=== PATIENT | male | born 1970 | race Caucasian/White ===

== ENCOUNTER 2018-06-20 05:46 | Day surgery (SDC) | payer OTHER ==
[2018-06-19 09:17] VITALS: BMI 41.4
--- NOTE | 2018-06-19 21:20 | PREOPHP ---
DATE OF ADMISSION: 06/20/2018 HISTORY OF PRESENT ILLNESS: This 48-year-old gentleman is going to be admitted for diagnostic arthro scopy of right knee, examination under general anesthesia, partial medial and lateral meniscectomy, p ossible ACL repair or reconstruction and removal of the previous remnant of the graft and screw from previous surgery, application of Russo dressing. SOCIAL HISTORY: He used to smoke and stopped smoking. Nondrinker. FAMILY HISTORY: Negative. PAST SURGICAL HISTORY: Previous surgery in 2003 ACL reconstruction. ALLERGIES: NO HISTORY OF ALLERGY TO MEDICATION. MEDICATIONS: 1. Sulindac. 2. Baclofen. 3. Folic acid. 4. For postop, Bactrim-DS and ibuprofen is given. PHYSICAL EXAMINATION: VITAL SIGNS: Height 6 inches 4 feet, weighing 315 pounds. SKIN: Within normal limits. EENT: PERRLA. HEAD AND NECK: Normocephalic. Trachea midline. Bilateral symmetrical carotid pulses. No mass, no bruit, no lymphadenopathy. CARDIOVASCULAR: Normal sinus rhythm. S1, S2 normal. No murmur, no JVD, no peripheral edema. LUNGS: Clear. ABDOMEN: Protuberant. No organomegaly. No mass. Bowel sounds present. RECTAL: Not pertinent to this admission, not done. MUSCULOSKELETAL: Head and neck unremarkable. Upper extremities normal with normal neurovascular exa mination. Spine clear. Both lower extremities symmetrical and normal except for right knee, full ra nge of motion, was able to the knee 70 to 80 degrees. There is marked tenderness over the medi al or lateral tibiofemoral joint line. Positive Arpita test. There is mild tenderness over the pa tellofemoral joint line. RADIOLOGIC EVALUATION: MRI report indicates postoperative changes with meniscal debridement, partial meniscectomy bilaterally and ACL tear. There is moderate significant arthrosis of the anterior aspe ct of the knee joint. ACL repair forward with complete disruption of the graft ossified mass within the posterior aspect of the intercondylar notch may be associated with prior ACL repair of a nonunion fracture superimposed to posterior horn of lateral meniscus adjacent to the intercondylar notch comp artment chondromalacia. X-ray has indicated previous anterior cruciate reconstruction moderate compartment osteoarthrosis. 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 Treatment plan, alternatives, risks and benefits discussed. No guarantee is being made. If there is a grade III chondromalacia in tricompartment area, there is no reason to go ahead and do this; howev er, if this reasonable shape of the meniscus. Will try our best to repair this meniscus and sa ve them and maybe put another ACL in. If the condition is not met for ACL allograft, will remove the screws and bone grafting will be done and then another second surgery would be performed for ACL all ograft. A formal H and P is supposed to be done by PCP. Dictated By: BILLIE ALANIS/JOHNSON Conf#: [id number] DID#: [id number]
[2018-06-20] VITALS (13 sets, daily range): BP systolic 128–158; BP diastolic 65–89; PULSE 69–90; RESP 11–18; Ht 193 cm; Wt 154.2 kg
[~2018-06-20] VITALS: Ht 193 cm; Wt 154.2 kg
[~2018-06-20 05:46] MED LIST: HYDR-3980 PO
--- NOTE | 2018-06-20 07:08 | PREAC ---
Date/Time of Note Date/Time of Note DATE: 06/20/18 TIME: 07:06 Anesthesia Eval and Record Evaluation Time Pre-Procedure Interview DATE: 06/20/18 TIME: 07:06 Age 48 Sex male NPO: 8 hrs Preoperative diagnosis right knee meniscus tear and ACL rupture Planned procedure right knee operative arthroscopy, partial medial and lateral meniscectomy or repair, ACL repair Past Medical History Past Medical History: Includes Cardio: Dyslipidemia GI: Morbid obesity Surgery & Anesthesia Issues No known issue Meds Anticoagulation: No Beta Beatrice within 24 hr: No Reason Beta Beatrice not given: Pt. not on B-Beatrice Discontinued Reported Medications Hydrocodone/Acetaminophen ([place] 10-325 Tablet) 1 Each Tablet, 1 EACH PO Q8 PRN for PAIN, TAB 06/19/18 Current Medications Cefazolin Sodium/ Dextrose 50 ml @ 100 mls/hr OC IVPB ; Start 06/20/18 at 07:30; Stop 06/20/18 at 07:59 Meds reviewed: Yes Allergies Coded Allergies: No Known Allergy (Unverified , 06/20/18) Allergies Reviewed: Yes Labs/Studies Labs Reviewed: Reviewed by anesthesiologist Result Diagram: 06/20/18 0612 Laboratory Tests 06/20/18 06:12 test: N/A Pre-procedure Exam Last vitals Vital Signs Date Temp Pulse Resp B/P (MAP) Pulse Ox O2 O2 Flow FiO2 Time Delivery Rate 06/20/18 98.3 89 18 128/68 95 Room Air 06:29 (88) Airway: Adequate mouth opening, Adequate thyromental dist Mallampati: Mallampati III Teeth: Normal Lung: Normal Heart: Normal ASA Physical Status ASA physical status: 3 Emergency: None Planned Anesthetic General/MAC: ETT (vs. ), LMA Nerve block: Femoral (right or adductor) Planned Pain Management Single shot nerve block, Parenteral pain med Pre-operative Attestations Prior to commencing anesthesia and surgery, the patient was re-evaluated, there was verification of: *The patient's identity *The results of appropriate recent lab work and preoperative vital signs *The above evaluation not changing prior to induction *Anesthetic plan, risk benefits, alternative and complications discussed with patient/family; questions answered; patient/family understands, accepts and wishes to proceed. SHADY FU MD Jun 20, 2018 07:08
[2018-06-20] MEDS ORDERED: PROPOFOL 20 ML ONE ×3 (07:24→08:02)
[2018-06-20] MEDS ORDERED: LIDOCAINE 2% (SDV) 5 ML INJ ONE (07:24)
[2018-06-20] MEDS ORDERED: MIDAZOLAM 1 MG/ML 2 ML INJ ONE (07:24)
[2018-06-20] MEDS ORDERED: CEFAZOLIN 2 GM/50 ML (PMX) 50 ML IVPB SCH (07:30)
[2018-06-20] MEDS ORDERED: SUCCINYLCHOLINE CHLORIDE 100 MG/5 ML SYG IV ONE (08:02)
[2018-06-20] MEDS ORDERED: ROCURONIUM 50 MG INJ ONE ×2 (08:07)
[2018-06-20] MEDS ORDERED: CEFAZOLIN 1 GM INJ ONE (08:07)
[2018-06-20] MEDS ORDERED: FAMOTIDINE 20 MG INJ ONE (08:09)
[2018-06-20] MEDS ORDERED: DEXAMETHASONE 4 MG/ML 5 ML INJ ONE (08:09)
[2018-06-20] MEDS ORDERED: ONDANSETRON 4 MG INJ ONE ×2 (08:09→12:15)
[2018-06-20] MEDS ORDERED: EPINEPHrine 1 MG/ML 30 ML INJ IRR ONE (08:17)
[2018-06-20] MEDS ORDERED: HYDROmorphONE 2 MG/ML SYG ONE (10:40)
[2018-06-20] MEDS ORDERED: GLYCOPYRROLATE 0.4 MG INJ ONE (11:12)
[2018-06-20] MEDS ORDERED: NEOSTIGMINE 3 MG/3 ML SYRINGE ONE (11:12)
[2018-06-20] MEDS ORDERED: morphine SULFATE/PF (10 MG/10 ML) INJ ONE (11:12)
--- NOTE | 2018-06-20 11:54 | SIPON ---
Date/Time of Note Date/Time of Note DATE: 06/20/18 TIME: 11:43 Operative Report Preoperative Diagnosis Torn medial , torn lateral meniscus, and torn ACL with synovitis Postoperative Diagnosis The same plus hudge loose body in right knee Operation/Procedure Performed Diagnostic scope, EUA, partial medial, lateral meniscotomy, synovectomy, removal of huge loose body. ACL repair. application of Russo dressing, Surgeon Billie Field MD ict sales assistant Second scrub Anesthesia: general Estimated blood loss: 0 - 10 ml's Transfusion Required none Specimen part of loose body Grafts/Implants none Complications none BILLIE FIELD MD Jun 20, 2018 11:53
[2018-06-20] MEDS ORDERED: HYDROCODONE/APAP (5/325) TAB PO PRN ×2 (12:00)
[2018-06-20] MEDS ORDERED: HYDROmorphONE 1 MG/5 ML IV SYRINGE IV ONE (12:15)
--- NOTE | 2018-06-20 12:26 | PAC ---
Date/Time of Note Date/Time of Note DATE: 06/20/18 TIME: 12:25 Post-Anesthesia Notes Post-Anesthesia Note Last documented vital signs Vital Signs Date Temp Pulse Resp B/P (MAP) Pulse Ox O2 O2 Flow FiO2 Time Delivery Rate 06/20/18 85 12 131/75 95 11:48 (99) 06/20/18 98.8 11:46 Activity: WNL Respiratory function: WNL Cardiovascular function: WNL Mental status: Baseline Pain reasonably controlled: Yes Hydration appropriate: Yes Nausea/Vomiting absent: Yes SHADY FU MD Jun 20, 2018 12:26
[2018-06-20] MEDS ORDERED: LABETALOL HCL 20MG INJ IV PRN (12:30)
[2018-06-20] MEDS ORDERED: FENTAnyl 50 MCG/ML VIAL IV PRN ×3 (12:30)
[2018-06-20] MEDS ORDERED: MEPERIDINE 25 MG INJ IV PRN (12:30)
[2018-06-20] MEDS ORDERED: HYDROmorphONE 1 MG/5 ML IV SYRINGE IV PRN ×3 (12:30)
[2018-06-20] MEDS ORDERED: PROCHLORPERAZINE 10 MG INJ IV PRN (12:30)
[2018-06-20] MEDS ORDERED: ONDANSETRON 4 MG INJ IV PRN (12:30)
[2018-06-20] MEDS ORDERED: EPHEDrine SULFATE 50 MG/5 ML SYG IV PRN (12:30)
[2018-06-20] MEDS ORDERED: hydrALAzine 20 MG INJ IV PRN (12:30)
[2018-06-20] MEDS ORDERED: DIPHENHYDRAMINE 50 MG INJ IV PRN (12:30)
[2018-06-20] MEDS ORDERED: HYDROmorphONE 1 MG/ML SYG IV PRN (13:30)
--- NOTE | 2018-06-20 15:34 | OPR ---
DATE OF OPERATION: 06/20/2018 PREOPERATIVE DIAGNOSES: 1. Status post failed ACL reconstruction. 2. Torn medial meniscus. 3. Torn lateral meniscus. 4. Synovitis, right knee. POSTOPERATIVE DIAGNOSES: 1. Torn medial meniscus. 2. Torn lateral meniscus. 3. Synovitis. 4. ACL disruption remnant of the ACL and allograft with few loose body intercondylar notch about 1 x almost 1 inch. OPERATION PERFORMED: Diagnostic arthroscopy, examination under general anesthesia, partial medial me niscectomy, partial lateral meniscectomy, synovectomy, removal of retained loose body, ACL repair, wa s not amenable to allograft reconstruction. ANESTHESIA: General. BLEEDIN mL. COMPLICATIONS: None. DESCRIPTION OF PROCEDURE: The patient was transferred to the operating room and placed on the table in supine position. General anesthesia was induced. A 2 grams of Ancef was given IV. The patient's right knee was shaved, prepped and draped in the routine fashion. Landmarks were marked and through 2 regular anteromedial and anterolateral parapatellar tendon. Operative arthroscopy was commenced. Examination of suprapatellar pouch indicated minimal synovitis with possible loose bodies superior p ole of the medial femoral condyle, but however, it seems to be osteophyte which was attached. Patell ofemoral indicated grade III chondromalacial. Going to medial compartment, there was a flap tear of the anterior horn of the medial meniscus and seems to be that patient had prior partial meniscectomy. There was synovitis in the medial compartment. Medial compartment indicates grade III generalized chondromalacia. Going to the intercondylar notch, I noticed that there was a huge loose body on the medial side of the lateral femoral condyle, sitting in the back and being loose. ACL seems to be dis rupted from the tibial side. Going to lateral compartment, there was vertical and oblique tear of th e lateral meniscus. The meniscus seems to be intact, but however, it shows some evidence of partial lateral meniscectomy. Periphery was intact. There was generalized grade III chondromalacia in the l ateral compartment. There was synovitis also on lateral compartment which was coagulated like the me dial compartment with the Arthrocare Bovie. Going to the intercondylar notch, we have the probe pull ed forward the loose body, but however since posteriorly was attached to the ligament and medially at tached to remnant of ACL and part of the PCL. We tried to remove it and took some pieces out, but ho wever it was not removable and every time we tried to press on it, it will go back to the posterior p art of the leg. Therefore, we made a vertical incision through the patella tendon. We therefore cou ld pull it forward and we used the abrader to abrade it down slowly and took more than an hour to be able to get rid of that. After removal of that, the medial side of the lateral femoral condyle along its posterior attached the ACL was very short and looks like the huge loose piece was from below of posterior wall. Therefore, it was not amenable to allograft ACL reconstruction. Since over the top there were fibers attached and I had some of the remnant of the ACL, I decided to do ACL repair with the FiberWire. Therefore, I made a drill at 55 degrees ____ edge of the PCL and possibly ____ and us e of FiberWire and I put 2 rows of stitch to remnant of the ACL and passed through the loop and broug ht it down to medial side of the tibia. We took it down half inch and I used 4.75 SwiveLock through that. Prior we do that over the abraded bone to bleeding surface on the tibial surface and anterior to the tibial spine. We obtained a negative Demian which was positive before. ____ which I did to do the tibia and it was closed deep and superficial with 0 Vicryl stitch. The portal was closed and the skin was closed with skin mini. We put 10 mg Duramorph mixed with 10 mL of injectable saline into the knee. Sterile Russo dressing was applied. Procedure was terminated. General anesthesia wa s stopped. The patient was taken to recovery room in good and stable condition. Dictated By: BILLIE ALANIS/JOHNSON Conf#: [id number] DID#: [id number]
== END 2018-06-20 13:24 | disposition home or self-care (01) ==
LOC: SDS 05:46
PROVIDERS: ATTEND Internal Medicine Endocrinology, Diabetes & Metabolism
DX: M23.211 Derangement of anterior horn of medial meniscus due to old tear or injury, right knee (principal); M23.261 Derangement of other lateral meniscus due to old tear or injury, right knee; M22.41 Chondromalacia patellae, right knee; M65.861 Other synovitis and tenosynovitis, right lower leg; M23.41 Loose body in knee, right knee; Z87.891 Personal history of nicotine dependence
CPT/HCPCS: 29880; 80053; 85025; 85610; 85730; J0171; J0690; J1100; J1170; J2250; J2274; J2405; J2710; J3010; Z7512; Z7610